=== PATIENT | male | born 1965 | race Caucasian/White ===

== ENCOUNTER 2020-12-29 17:38 | Emergency (ER) | payer SELFPAY ==
[~2020-12-29] VITALS: Ht 170.2 cm; Wt 77.1 kg
[2020-12-29 18:55] VITALS: BP 122/78
[2020-12-29 19:42] LABS: Basophils # (auto) 0.2 10 ^3/uL (0-0.2); Basophils % (auto) 1.5 % (0.0-2.0); Eosinophils # (auto) 0.3 10 ^3/uL (0-0.8); Eosinophils % (auto) 2.3 % (0.0-7.0); Hematocrit 48.2 % (41.0-53.0); Hemoglobin 17.2 g/dL (13.5-17.5); Lymphocytes # (auto) 3.9 10 ^3/uL (0.4-5.4); Lymphocytes % (auto) 30.3 % (10.0-50.0); Mean Corpuscular Hemoglobin 31.5 pg (28.0-32.0); Mean Corpuscular Hgb Conc. 35.7 g/dL (32.0-36.0); Monocytes # (auto) 1.3 10 ^3/uL (0-1.3); Monocytes % (auto) 9.9 % (0.0-12.0); Neutrophils # (auto) 7.2 10 ^3/uL (1.6-8.6); Nucleated Red Blood Cells % 0.2 %; Platelet Count (auto) 324 10^3/uL (140-450); Red Blood Cells 5.47 10^6/uL (4.5-5.90); Red Cell Distribution Width 13.5 % (11.8-14.3); White Blood Cell 12.9 10^3/uL (4.4-10.8)
[2020-12-29] MEDS ORDERED: SODIUM CHLORIDE 0.9% 1,000 ML IV ONE (19:45)
[2020-12-29] MEDS ORDERED: ACETAMINOPHEN 325 MG TAB PO ONE (19:45)
[2020-12-29] MEDS ORDERED: METOCLOPRAMIDE HCL 5MG/ml INJ 2ml VIAL IV ONE (19:45)
[2020-12-29] MEDS ORDERED: KETOROLAC TROMETH 30 MG/ML 1ML VIAL IV ONE (19:45)
[2020-12-29 20:12] LABS: Amphetamine Screen, Urine POSITIVE (NEGATIVE); Barbiturate Scree,Urine NEGATIVE (NEGATIVE); Benzodiazephine Screen, Urine NEGATIVE (NEGATIVE); Cannabinoid Screen, Urine POSITIVE (NEGATIVE); Cocaine Screen, Urine NEGATIVE (NEGATIVE); Opiate Scree,Urine NEGATIVE (NEGATIVE); Phencyclidine Screen, Urine NEGATIVE (NEGATIVE)
[2020-12-29 20:13] LABS: Albumin 3.4 g/dL (3.4-5.0); Anion Gap 8 (5-15); Calcium 8.4 mg/dL (8.5-10.1); Carbon Dioxide 22 mmol/L (21-32); Chloride 106 mmol/L (98-107); Glucose 109 mg/dL (74-106); Potassium 4.2 mmol/L (3.5-5.1); Sodium 136 mmol/L (136-145)
[2020-12-29 20:19] LABS: Alkaline Phosphatase 95 U/L (45-117); Aspartate Aminotransferase 26 U/L (15-37); Bilirubin, Total 0.3 mg/dL (0.2-1.0); GFR African American 96 mL/min; GFR Non-African American 80 mL/min; Total Protein 7.7 g/dL (6.4-8.2)
[2020-12-29 20:25] LABS: Alanine Aminotransferase 30 U/L (16-61)
[2020-12-29 20:33] LABS: BUN/Creatinine Ratio 17.5; Blood Urea Nitrogen 18 mg/dL (7-18)
== END 2020-12-29 20:53 | disposition left against medical advice (07) ==
LOC: ER 17:38
DX: R51.9 Headache, unspecified (principal)
CPT/HCPCS: 36415; 71046; 80053; 80307; 84484; 85025; 93005

== ENCOUNTER 2024-07-08 14:33 | Inpatient (IN) | payer OTHER ==
[~2024-07-08] VITALS: Ht 167.6 cm; Wt 79.7 kg
[~2024-07-08 14:33] MED LIST: ASPI-543 PO; ATOR80TA PO; LISI10TA34 PO; NITR0.4S29 SL
--- NOTE | 2024-07-08 15:24 | ED.PDOC ---
HPI Comments 58 year old male presents to the ED with chief complaint of chest rash/pain. Patient reports that he had been experiencing heat and tightness to the right side of his chest along with associated rash around his areola for the past week. Patient relays that the rash has since resolved, but the right side of his chest feels hot and he has felt more fatigued than usual. Patient states he is currently on Aspirin and notes his chest hurts more when he gets mad or his blood pressure elevates. Patient notes history of NH in September. Patient denies any N/V, SOB, cough, fever, chills, dizziness, or headache. Time Seen by MD: 15:18 Primary Care Provider: UNKNOWN Reviewed Notes: Nurses Notes, Medications, Allergies Allergies: Coded Allergies: Penicillins (Verified Allergy, Unknown, 10/02/23) Home Meds Active Scripts Atorvastatin Calcium (Lipitor) 80 Mg Tab, 1 TAB PO DAILY, #30 TAB 5 Refills Prov:JACINDA YODER MD 10/03/23 Nitroglycerin (NTROSTAT SUBLINGUAL) 0.4 Mg Sl, 0.4 MG SL Q5MINP PRN, #100 TAB 5 Refills Prov:JACINDA YODER MD 10/03/23 Aspirin (Aspir-Low) 81 Mg Tab, 81 MG PO DAILY, #30 TAB 5 Refills Prov:JACINDA YODER MD 10/03/23 Reported Medications Lisinopril (Lisinopril) 10 Mg Tab, 1 TAB PO DAILY 10/02/23 Information Source: Patient Mode of Arrival: Ambulatory Severity: Moderate Timing: Weeks Duration: Since onset Prehospital treatment: None Location: Chest (R) Radiation: No Radiation Quality: Tightness Onset: At Rest Cardiac Risk Factors: Smoker, Hyperlipidemia, HTN PE Risk Factors: None History of: Similar pain in past, NH, Aspirin Associated Signs and Symptoms: Chest Rash Past Medical History PAST MEDICAL HISTORY: High Lipids, HTN, NH Surgical History: Denies all surgeries Family History Family History: Reviewed,noncontributory to illness Social History Smoker: Cigarettes, Less Than 1 Pack/Day Alcohol: Denies ETOH Use Drugs: Denies Drug Use Lives In: Home Constitutional: reports: fatigue; denies: chills, diaphoresis, fever, malaise, sweats, weakness, others EENTM: denies: blurred vision, double vision, ear bleeding, ear discharge, ear drainage, ear pain, ear ringing, eye pain, eye redness, hearing loss, mouth pain, mouth swelling, nasal discharge, nose bleeding, nose congestion, nose pain, photophobia, tearing, throat pain, throat swelling, voice changes, others Respiratory: denies: cough, hemoptysis, orthopnea, SOB at rest, shortness of breath, SOB with excertion, stridor, wheezing, others Cardiovascular: reports: chest pain; denies: dizzy spells, diaphoresis, Dyspnea on exertion, edema, irregular heart beat, left arm pain, lightheadedness, palpitations, PND, syncope, others Gastrointestinal: denies: abdomen distended, abdominal pain, blood streaked bowels, constipated, diarrhea, dysphagia, difficulty swallowing, hematemesis, melena, nausea, poor appetite, poor fluid intake, rectal bleeding, rectal pain, vomiting, others Genitourinary: denies: burning, dysuria, flank pain, frequency, hematuria, incontinence, penile discharge, penile sore, pain, testicle pain, testicle swelling, urgency, others Neurological: denies: dizziness, fainting, headache, left sided numbness, left sided weakness, numbness, paresthesia, pre-existing deficit, right sided numbness, right sided weakness, seizure, speech problems, tingling, tremors, weakness, others Musculoskeletal: denies: back pain, gout, joint pain, joint swelling, muscle pain, muscle stiffness, neck pain, others Integumetry: denies: bruises, change in color, change in hair/nails, dryness, laceration, lesions, lumps, rash, wounds, others Allergic/Immunocompromised: denies: Difficulty Healing, Frequent Infections, Hi ves, Itching, others Hematologic/Lymphatic: denies: anemia, blood clots, easy bleeding, easy bruising, swollen glands, others Endocrine: denies: excessive hunger, excessive sweating, excessive thirst, excessive urination, flushing, intolerance to cold, intolerance to heat, unexplained weight gain, unexplained weight loss, others Psychiatric: denies: anxiety, bipolar disorder, depression, hopeless, panic disorder, schizophrenia, sleepless, suicidal, others All Other Systems: Reviewed and Negative Physical Exam General Appearance: No Apparent Distress, Normal HEENT: Normal ENT Inspection, PERRL/EOMI Neck: Full Range of Motion, Non-Tender, Normal, Normal Inspection Respiratory: Chest Non-Tender, Lungs Clear, No Accessory Muscle Use, No Respiratory Distress, Normal Breath Sounds Cardiovascular: No Edema, No JVD, No Murmur, No Gallop, Normal Peripheral Pulses, Regular Rate/Rhythm Breast Exam: Other (No masses felt to chest, no rashes, no tenderness to palpation. Mild gynecomastia noted to right breast.) Gastrointestinal: No Organomegaly, Non Tender, No Pulsatile Mass, Normal Bowel Sounds, Soft Genitalia: Deferred Pelvic: Deferred Rectal: Deferred Extremities: No calf tenderness, Normal capillary refill, Normal inspection, Normal range of motion, Non-tender, No pedal edema Musculoskeletal : Apperance: Normal Neurologic: Alert, social work therapist II-XII nml as Tested, No Motor Deficits, Normal Affect, Normal Mood, No Sensory Deficits Cerebellar Function: Normal Reflexes: Normal Skin: Dry, Normal Color, Warm Lymphatic: No Adenopathy Was a procedure done? Was a procedure done?: No CP Differential Dx Differential Diagnosis: Angina, Heart Failure, NH, PVC's X-Ray, Labs, Meds, VS Vital Signs Date Time Temp Pulse Resp B/P (MAP) Pulse Ox O2 Delivery O2 Flow Rate FiO2 07/08/24 17:14 109 07/08/24 15:51 97.8 98 18 140/101 (114) 97 Lab Test 07/08/24 16:52 07/08/24 16:08 Range/Units Troponin I High Sensitivity Pending 4 </=54 ng/L White Blood Count 10.9 H 4.4-10.8 10^3/uL Red Blood Count 5.87 4.5-5.90 10^6/uL Hemoglobin 18.3 H 13.5-17.5 g/dL Hematocrit 53.1 H 41.0-53.0 % Mean Corpuscular Volume 90.4 80.0-100.0 fL Mean Corpuscular Hemoglobin 31.2 28.0-32.0 pg Mean Corpuscular Hemoglobin Concent 34.5 32.0-36.0 g/dL Red Cell Distribution Width 13.8 11.8-14.3 % Platelet Count 355 140-450 10^3/uL Mean Platelet Volume 8.2 6.9-10.8 fL Neutrophils (%) (Auto) 51.3 37.0-80.0 % Lymphocytes (%) (Auto) 33.5 10.0-50.0 % Monocytes (%) (Auto) 11.2 0.0-12.0 % Eosinophils (%) (Auto) 2.5 0.0-7.0 % Basophils (%) (Auto) 1.5 0.0-2.0 % Neutrophils # (Auto) 5.6 1.6-8.6 10 ^3/uL Lymphocytes # (Auto) 3.7 0.4-5.4 10 ^3/uL Monocytes # (Auto) 1.2 0-1.3 10 ^3/uL Eosinophils # (Auto) 0.3 0-0.8 10 ^3/uL Basophils # (Auto) 0.2 0-0.2 10 ^3/uL Nucleated Red Blood Cells 0.1 % Sodium Level 138 136-145 mmol/L Potassium Level 4.8 3.5-5.1 mmol/L Chloride Level 103 98-107 mmol/L Carbon Dioxide Level 28 20-31 mmol/L Anion Gap 7 5-15 Blood Urea Nitrogen 12 9-23 mg/dL Creatinine 0.97 0.700-1.30 mg/dL Glomerular Filtration Rate Calc 90 >90 mL/min BUN/Creatinine Ratio 12.4 10.0-20.0 Serum Glucose 97 74-106 mg/dL Calcium Level 10.5 H 8.7-10.4 mg/dL Total Bilirubin 0.3 0.2-1.0 mg/dL Aspartate Amino Transferase (AST) 23 13-40 U/L Alanine Aminotransferase (ALT) 47 H 7-40 U/L Alkaline Phosphatase 102 46-116 U/L Total Protein 7.8 5.7-8.2 g/dL Albumin 4.8 3.2-4.8 g/dL Chest XR: FINDINGS: Lines and tubes: None Cardiomediastinal silhouette: normal Pulmonary vasculature: normal Lung expansion: normal Lung airspace: normal Lung interstitium: normal Pleura: normal Pneumothorax: no Bones: Unremarkable Other: no IMPRESSION: No acute intrathoracic abnormality. Images Reviewed?: Images reviewed and evaluated by me Time of 1ST Reevaluation: 16:18 Reevaluation 1ST: Unchanged Patient Education/Counseling: Diagnosis, Treatment Family Education/Counseling: No Family Present Departure 1 Departure Time of Disposition: 17:32 Impression: Primary Impression: Chest pain Disposition: 09 ADMITTED INPATIENT Admit to: Tele Condition: Serious Critical Care Note Critical Care Time?: No Stability Stability form required: No Heart Score Heart Score: Heart Score Response (Comments) Value History Moderate Suspicious 1 EKG Repolarization Disturb 1 Age 45-64 1 Risk Factors >3 or Hx ASHD 2 Troponin Normal limit 0 Total 5 I personally scribed for TAHIR GEE MD ([email or web address]) on 07/08/24 at 15:24. Electronically submitted by Ciaran Fernandez ([email or web address]). I personally scribed for TAHIR GEE MD ([email or web address]) on 07/08/24 at 16:30. Electronically submitted by Ciaran Fenrandez ([email or web address]). I personally scribed for TAHIR GEE MD ([email or web address]) on 07/08/24 at 17:09. Electronically submitted by Shanda Stearns [email or web address]). TAHIR GEE MD Jul 08, 2024 15:24
[2024-07-08 16:18] LABS: Basophils # (auto) 0.2 10 ^3/uL (0-0.2); Basophils % (auto) 1.5 % (0.0-2.0); Eosinophils # (auto) 0.3 10 ^3/uL (0-0.8); Eosinophils % (auto) 2.5 % (0.0-7.0); Hematocrit 53.1 % (41.0-53.0); Hemoglobin 18.3 g/dL (13.5-17.5); Lymphocytes # (auto) 3.7 10 ^3/uL (0.4-5.4); Lymphocytes % (auto) 33.5 % (10.0-50.0); Mean Corpuscular Hemoglobin 31.2 pg (28.0-32.0); Mean Corpuscular Hgb Conc. 34.5 g/dL (32.0-36.0); Mean Corpuscular Volume 90.4 fL (80.0-100.0); Monocytes # (auto) 1.2 10 ^3/uL (0-1.3); Monocytes % (auto) 11.2 % (0.0-12.0); Neutrophils # (auto) 5.6 10 ^3/uL (1.6-8.6); Neutrophils % (auto) 51.3 % (37.0-80.0); Nucleated Red Blood Cells % 0.1 %; Platelet Count (auto) 355 10^3/uL (140-450); Red Blood Cells 5.87 10^6/uL (4.5-5.90); Red Cell Distribution Width 13.8 % (11.8-14.3); White Blood Cell 10.9 10^3/uL (4.4-10.8)
--- NOTE | 2024-07-08 16:23 | DVH ---
XY CHEST PORTABLE, HISTORY: cp COMPARISON: XY CHEST PORTABLE on DOS: 10/02/23 XY CHEST PORTABLE on DOS: 10/02/23 TECHNICAL DATA: 1 view of the chest was obtained. FINDINGS: Lines and tubes: None Cardiomediastinal silhouette: normal Pulmonary vasculature: normal Lung expansion: normal Lung airspace: normal Lung interstitium: normal Pleura: normal Pneumothorax: no Bones: Unremarkable Other: no IMPRESSION: No acute intrathoracic abnormality.
[2024-07-08 16:36] LABS: Alkaline Phosphatase 102 U/L (46-116); Anion Gap 7 (5-15); Aspartate Aminotransferase 23 U/L (13-40); BUN/Creatinine Ratio 12.4 (10.0-20.0); Bilirubin, Total 0.3 mg/dL (0.2-1.0); Blood Urea Nitrogen 12 mg/dL (9-23); Carbon Dioxide 28 mmol/L (20-31); Chloride 103 mmol/L (98-107); Glucose 97 mg/dL (74-106); Potassium 4.8 mmol/L (3.5-5.1); Sodium 138 mmol/L (136-145); Total Protein 7.8 g/dL (5.7-8.2)
[2024-07-08 16:46] LABS: Alanine Aminotransferase 47 U/L (7-40); Albumin 4.8 g/dL (3.2-4.8); Calcium 10.5 mg/dL (8.7-10.4)
[2024-07-08 17:58] VITALS: RESP 18; RESP 20
[2024-07-08] MEDS: ASPirin 325 MG TAB PO ONE (17:58)
[2024-07-08 19:38] VITALS: BP 125/98; PULSE 90; TEMP 97.9; O2SAT 95
[2024-07-08] MEDS ORDERED: ACETAMINOPHEN 325 MG TAB PO PRN (21:45)
[2024-07-08] MEDS ORDERED: DOCUSATE SOD 100 MG CAP PO PRN (21:45)
[2024-07-08] MEDS ORDERED: ONDANSETRON HCL 4 MG/2 ML VIAL IV PRN (21:45)
[2024-07-08] MEDS ORDERED: NITROGLYCERIN 0.4 MG SL TAB SL PRN (21:45)
[2024-07-08] MEDS ORDERED: MORPHINE SULFATE INJ 2 MG/ml SYRG IV PRN ×2 (21:45)
[2024-07-08] MEDS: SODIUM CHLOR 0.9% PF (SALINE LOCK) 10ML VIAL/SYR IV SCH (22:24)
--- NOTE | 2024-07-08 23:38 | DVHDSRES ---
Discharge Summary Date of Admission Resident Creating Document: TREVOR MARTINS RESIDENT Jul 08, 2024 at 21:35 Date of Discharge: Jul 08, 2024 Admitting Diagnosis chest pain Labs/Diagnostic Data: Laboratory Results Test 07/08/24 16:52 07/08/24 16:08 Troponin I High Sensitivity 4 ng/L (</=54) White Blood Count 10.9 10^3/uL (4.4-10.8) Red Blood Count 5.87 10^6/uL (4.5-5.90) Hemoglobin 18.3 g/dL (13.5-17.5) Hematocrit 53.1 % (41.0-53.0) Mean Corpuscular Volume 90.4 fL (80.0-100.0) Mean Corpuscular Hemoglobin 31.2 pg (28.0-32.0) Mean Corpuscular Hemoglobin Concent 34.5 g/dL (32.0-36.0) Red Cell Distribution Width 13.8 % (11.8-14.3) Platelet Count 355 10^3/uL (140-450) Mean Platelet Volume 8.2 fL (6.9-10.8) Neutrophils (%) (Auto) 51.3 % (37.0-80.0) Lymphocytes (%) (Auto) 33.5 % (10.0-50.0) Monocytes (%) (Auto) 11.2 % (0.0-12.0) Eosinophils (%) (Auto) 2.5 % (0.0-7.0) Basophils (%) (Auto) 1.5 % (0.0-2.0) Neutrophils # (Auto) 5.6 10 ^3/uL (1.6-8.6) Lymphocytes # (Auto) 3.7 10 ^3/uL (0.4-5.4) Monocytes # (Auto) 1.2 10 ^3/uL (0-1.3) Eosinophils # (Auto) 0.3 10 ^3/uL (0-0.8) Basophils # (Auto) 0.2 10 ^3/uL (0-0.2) Nucleated Red Blood Cells 0.1 % Sodium Level 138 mmol/L (136-145) Potassium Level 4.8 mmol/L (3.5-5.1) Chloride Level 103 mmol/L (98-107) Carbon Dioxide Level 28 mmol/L (20-31) Anion Gap 7 (5-15) Blood Urea Nitrogen 12 mg/dL (9-23) Creatinine 0.97 mg/dL (0.700-1.30) Glomerular Filtration Rate Calc 90 mL/min (>90) BUN/Creatinine Ratio 12.4 (10.0-20.0) Serum Glucose 97 mg/dL (74-106) Calcium Level 10.5 mg/dL (8.7-10.4) Total Bilirubin 0.3 mg/dL (0.2-1.0) Aspartate Amino Transferase (AST) 23 U/L (13-40) Alanine Aminotransferase (ALT) 47 U/L (7-40) Alkaline Phosphatase 102 U/L (46-116) Total Protein 7.8 g/dL (5.7-8.2) Albumin 4.8 g/dL (3.2-4.8) Other Laboratory Tests 07/08/24 16:08 Brief Hx & Hospital Course: Patient is 58 years old male with past medical history of hypertension, hyperlipidemia, [place], smoker came with a complaint of chest tightness on right side along with some feeling heat. Patient reported that he had rash on the right side of the chest before which resolved but the chest feels hot and he feels fatigued which is unusual. Initial lab workup revealed leukocytosis with WBC 10.9, calcium 10.5, elevated ALT 47, negative for troponin I, sodium/potassium, serum creatinine within normal limit. Following admission order patient could not be seen as patient eloped. Condition at Discharge: Undetermined Final Diagnosis/Problems List chest pain ACS under evaluation Hypertension Hyperlipidemia History of SC Leukocytosis Smoker Discharge Disposition: Eloped Discharge Statement: "Patient was advised to return to the ER or call 911 if any headaches, dizziness, shortness of breath, chest pain, abdominal pain, bleeding, fevers, or worsening of medical condition. Patient was counseled about treatment plan, medications, possible side effects, patientverbalized understanding. All questions were answered to the best of my ability. This discharge took greater then 30 minutes in planning, reviewing documentation, counseling the patient, and discussing with other team members." ASSESSMENT ASSESSMENT Assessment Date of Service: Jul 08, 2024 Billing Provider: TIFFANIE ESQUIVEL MD Common Visit Codes: NOT BILLABLE TREVOR MARTINS RESIDENT Jul 08, 2024 23:38 TIFFANIE ESQUIVEL MD Jul 10, 2024 14:57
--- NOTE | 2024-07-08 23:38 | DVHHPRES ---
History of Present Illness Resident Creating Document: TREVOR MARTINS RESIDENT History of Present Illness Patient is 58 years old male with past medical history of hypertension, hyperlipidemia, [place], smoker came with a complaint of chest tightness on right side along with some feeling heat. Patient reported that he had rash on the right side of the chest before which resolved but the chest feels hot and he feels fatigued which is unusual. Initial lab workup revealed leukocytosis with WBC 10.9, calcium 10.5, elevated ALT 47, negative for troponin I, sodium/potassium, serum creatinine within normal limit. Following admission order patient could not be seen as patient eloped. Past Medical History Hypertension, bgs hyperlipidemia, ex-smoker Past Surgical History None as per medical record Past Social History Patient denied drinking alcohol or drug abuse, smoker Review of Systems Review of Systems Review of other system could not be done as patient eloped Allergies: Coded Allergies: Penicillins (Verified Allergy, Unknown, 10/02/23) Exam Vital Signs Vital Signs Date Time Temp Pulse Resp B/P (MAP) Pulse Ox O2 Delivery O2 Flow Rate FiO2 07/08/24 19:38 97.9 90 125/98 (107) 95 97.9 07/08/24 17:58 20 Room Air* 0 21 Exam Physical examination could not be done as patient eloped Labs/Xrays Labs Test 07/08/24 16:52 07/08/24 16:08 Range/Units Troponin I High Sensitivity 4 </=54 ng/L White Blood Count 10.9 H 4.4-10.8 10^3/uL Red Blood Count 5.87 4.5-5.90 10^6/uL Hemoglobin 18.3 H 13.5-17.5 g/dL Hematocrit 53.1 H 41.0-53.0 % Mean Corpuscular Volume 90.4 80.0-100.0 fL Mean Corpuscular Hemoglobin 31.2 28.0-32.0 pg Mean Corpuscular Hemoglobin Concent 34.5 32.0-36.0 g/dL Red Cell Distribution Width 13.8 11.8-14.3 % Platelet Count 355 140-450 10^3/uL Mean Platelet Volume 8.2 6.9-10.8 fL Neutrophils (%) (Auto) 51.3 37.0-80.0 % Lymphocytes (%) (Auto) 33.5 10.0-50.0 % Monocytes (%) (Auto) 11.2 0.0-12.0 % Eosinophils (%) (Auto) 2.5 0.0-7.0 % Basophils (%) (Auto) 1.5 0.0-2.0 % Neutrophils # (Auto) 5.6 1.6-8.6 10 ^3/uL Lymphocytes # (Auto) 3.7 0.4-5.4 10 ^3/uL Monocytes # (Auto) 1.2 0-1.3 10 ^3/uL Eosinophils # (Auto) 0.3 0-0.8 10 ^3/uL Basophils # (Auto) 0.2 0-0.2 10 ^3/uL Nucleated Red Blood Cells 0.1 % Sodium Level 138 136-145 mmol/L Potassium Level 4.8 3.5-5.1 mmol/L Chloride Level 103 98-107 mmol/L Carbon Dioxide Level 28 20-31 mmol/L Anion Gap 7 5-15 Blood Urea Nitrogen 12 9-23 mg/dL Creatinine 0.97 0.700-1.30 mg/dL Glomerular Filtration Rate Calc 90 >90 mL/min BUN/Creatinine Ratio 12.4 10.0-20.0 Serum Glucose 97 74-106 mg/dL Calcium Level 10.5 H 8.7-10.4 mg/dL Total Bilirubin 0.3 0.2-1.0 mg/dL Aspartate Amino Transferase (AST) 23 13-40 U/L Alanine Aminotransferase (ALT) 47 H 7-40 U/L Alkaline Phosphatase 102 46-116 U/L Total Protein 7.8 5.7-8.2 g/dL Albumin 4.8 3.2-4.8 g/dL Assessment/Plan Assessment/Plan Right-sided chest pain, cause undetermined ACS for evaluation Hypertension Hyperlipidemia History of coronary artery disease Smoker DETAILS OF THE TREATMENT PLAN COULD NOT BE MAKE PATIENT ELOPED Goals of care/advance care planning; FULL CODE; PUD prophylaxis: DVT prophylaxis: Plan discussed with Dr. Esquivel, nursing staff, Plan discussed with: Other (RN) My Orders Orders - TREVOR MARTINS RESIDENT Procedure Category Date Status Time Admit ADMIT 07/08/24 Transmitted 21:35 Echo 2d Mode Cardiac US 07/08/24 Logged DOP 21:35 Oxygen By Nasal RT 12/3/24 Transmitted Cannula 21:35 Thyroid Stimulating LAB 07/08/24 In Process Hormone 22:04 Magnesium LAB 07/08/24 In Process 22:04 Date of Service: Jul 08, 2024 Billing Provider: TIFFANIE ESQUIVEL MD Common Visit Codes: 73680-EPBALLX INP/OBS CARE (HIGH) Secondary Visit Codes: 44177-[id number] CARE PLAN 30 MINUTES TREVOR MARTINS RESIDENT Jul 08, 2024 23:38 TIFFANIE ESQUIVEL MD Jul 10, 2024 14:56
--- NOTE | 2024-07-09 10:32 | ECG ---
[facility] Test Date: 2024-07-08 Test Time: 17:14:50 Pat Name: JOCELYNE WEI Department: ER Room: [address] [place] [address] A Gender: M Slabber Light: AZIZA : 1965 Requested By: TAHIR GEE Order Number: [id number] Reading MD: Pavan Wilson Measurements Intervals [place] Rate: 109 P: 43 [place]: 140 QRS: -17 QRSD: 93 T: 140 QT: 290 QTc: 391 Interpretive Statements Sinus tachycardia Abnormal R-wave progression, early transition LVH with secondary repolarization abnormality Inferior infarct, old Electronically Signed On 07-09-2024 16:25:07 PST by Pavan Wilson Please click the below link to view image of tracing.
--- NOTE | 2024-07-11 12:45 | ECG ---
[facility] Test Date: 2024-07-08 Test Time: 19:28:39 Pat Name: JOCELYNE WEI Department: ER Room: [address] [place] [address] Gender: M Plant Mechanic: SHADI : 1965 Requested By: TAHIR GEE Order Number: [id number] Reading MD: Pavan Wilson Measurements Intervals [place] Rate: 87 P: 59 ND: 140 QRS: -26 QRSD: 110 T: 5 QT: 347 QTc: 418 Interpretive Statements Sinus rhythm Abnormal R-wave progression, early transition Left ventricular hypertrophy Electronically Signed On 07-17-2024 11:08:27 PST by Pavan Wilson Please click the below link to view image of tracing.
== END 2024-07-08 22:46 | disposition left against medical advice (07) | DRG 203 ==
LOC: ER 14:33 → TELE 21:35
PROVIDERS: ADMIT Internal Medicine; ATTEND Emergency Medicine
DX: M94.0 Chondrocostal junction syndrome [Tietze] (principal); D72.829 Elevated white blood cell count, unspecified; I25.2 Old myocardial infarction; Z53.29 Procedure and treatment not carried out because of patient's decision for other reasons; E78.5 Hyperlipidemia, unspecified; F17.210 Nicotine dependence, cigarettes, uncomplicated; I10 Essential (primary) hypertension; Z79.899 Other long term (current) drug therapy
CPT/HCPCS: 36415; 71045; 80053; 83735; 84443; 84484; 85025; 93005; G0378

== ENCOUNTER 2024-11-02 14:00 | Emergency (ER) | payer OTHER ==
[~2024-11-02] VITALS: Ht 170.2 cm; Wt 77.0 kg
--- NOTE | 2024-11-02 14:11 | ECG ---
[facility] Test Date: 2024-11-02 Test Time: 14:09:09 Pat Name: JOCELYNE WEI Department: ED Room: Gender: Radio Maintainer: PARVIN : 1965 Requested By: MED PISANO Order Number: [id number] Reading MD: Pavan Wilson Measurements Intervals [place] Rate: 98 P: 47 W[place]: 138 QRS: -16 QRSD: 105 T: 131 QT: 342 QTc: 437 Interpretive Statements Sinus rhythm Abnormal R-wave progression, early transition LVH with secondary repolarization abnormality Inferior infarct, old Electronically Signed On 11-05-2024 22:02:43 PDT by Pavan Wilson Please click the below link to view image of tracing.
--- NOTE | 2024-11-02 14:26 | ED.PDOC ---
HPI Comments 58 year old male JEREMI presents to the ED with chief complaint of chest pain/SOB. Patient reports that he has been experiencing left sided chest pressure that radiates to his left arm along with associated SOB for the past 2 days. Patient relays that he took one dose of NTG at home with some relief in chest pain noted. EMS states that they provided the patient 0.4mg of NTG and 324 of ASA on route with some relief noted. Patient notes he has history of a previous IN and currently smokes. Patient denies any numbness, weakness, dizziness, headache, or blurred vision. Chief Complaint: Chest Pain Time Seen by MD: 14:20 Primary Care Provider: UNKNOWN Reviewed Notes: Nurses Notes, Hospice Nurse Notes, Medications, Allergies Allergies: Coded Allergies: Penicillins (Verified Allergy, Unknown, 10/02/23) Home Meds Active Scripts Atorvastatin Calcium (Lipitor) 80 Mg Tab, 1 TAB PO DAILY, #30 TAB 5 Refills Prov:JACINDA YODER MD 10/03/23 Nitroglycerin (NTROSTAT SUBLINGUAL) 0.4 Mg Sl, 0.4 MG SL Q5MINP PRN, #100 TAB 5 Refills Prov:JACINDA YODER MD 10/03/23 Aspirin (Aspir-Low) 81 Mg Tab, 81 MG PO DAILY, #30 TAB 5 Refills Prov:JACINDA YODER MD 10/03/23 Reported Medications Lisinopril (Lisinopril) 10 Mg Tab, 1 TAB PO DAILY 10/02/23 Information Source: Patient, Emergency Med Personnel Mode of Arrival: EMS Severity: Moderate Timing: Days Duration: Since onset Prehospital treatment: ASA, NTG Location: Chest (L) Radiation: Arm (L) Quality: Pressure Onset: At Rest Cardiac Risk Factors: Smoker, Hyperlipidemia, HTN PE Risk Factors: None History of: Similar pain in past, IN Associated Signs and Symptoms: SOB Past Medical History PAST MEDICAL HISTORY: High Lipids, HTN, IN Surgical History (Other): Perforated bowel surgery, left ankle surgery, angiogram Family History Family History: Reviewed,noncontributory to illness Social History Smoker: Cigarettes, Less Than 1 Pack/Day Alcohol: Denies ETOH Use Drugs: Denies Drug Use Lives In: Home Constitutional: denies: chills, diaphoresis, fatigue, fever, malaise, sweats, weakness, others EENTM: denies: blurred vision, double vision, ear bleeding, ear discharge, ear drainage, ear pain, ear ringing, eye pain, eye redness, hearing loss, mouth pain, mouth swelling, nasal discharge, nose bleeding, nose congestion, nose pain, photophobia, tearing, throat pain, throat swelling, voice changes, others Respiratory: reports: shortness of breath; denies: cough, hemoptysis, orthopnea, SOB at rest, SOB with excertion, stridor, wheezing, others Cardiovascular: reports: chest pain; denies: dizzy spells, diaphoresis, Dyspnea on exertion, edema, irregular heart beat, left arm pain, lightheadedness, palpitations, PND, syncope, others Gastrointestinal: denies: abdomen distended, abdominal pain, blood streaked bowels, constipated, diarrhea, dysphagia, difficulty swallowing, hematemesis, melena, nausea, poor appetite, poor fluid intake, rectal bleeding, rectal pain, vomiting, others Genitourinary: denies: burning, dysuria, flank pain, frequency, hematuria, incontinence, penile discharge, penile sore, pain, testicle pain, testicle swelling, urgency, others Neurological: denies: dizziness, fainting, headache, left sided numbness, left sided weakness, numbness, paresthesia, pre-existing deficit, right sided numbness, right sided weakness, seizure, speech problems, tingling, tremors, weakness, others Musculoskeletal: denies: back pain, gout, joint pain, joint swelling, muscle pain, muscle stiffness, neck pain, others Integumetry: denies: bruises, change in color, change in hair/nails, dryness, laceration, lesions, lumps, rash, wounds, others Allergic/Immunocompromised: denies: Difficulty Healing, Frequent Infections, Hives, Itching, others Hematologic/Lymphatic: denies: anemia, blood clots, easy bleeding, easy bruising, swollen glands, others Endocrine: denies: excessive hunger, excessive sweating, excessive thirst, excessive urination, flushing, intolerance to cold, intolerance to heat, unexplained weight gain, unexplained weight loss, others Psychiatric: denies: anxiety, bipolar disorder, depression, hopeless, panic disorder, schizophrenia, sleepless, suicidal, others All Other Systems: Reviewed and Negative Physical Exam General Appearance: Moderate Distress, Normal HEENT: Normal ENT Inspection, PERRL/EOMI Neck: Full Range of Motion, Non-Tender, Normal, Normal Inspection Respiratory: Chest Non-Tender, Lungs Clear, No Accessory Muscle Use, No Respiratory Distress, Normal Breath Sounds Cardiovascular: No Edema, No JVD, No Murmur, No Gallop, Normal Peripheral Pulses, Regular Rate/Rhythm Breast Exam: Deferred Gastrointestinal: No Organomegaly, Non Tender, No Pulsatile Mass, Normal Bowel Sounds, Soft Genitalia: Deferred Pelvic: Deferred Rectal: Deferred Extremities: No calf tenderness, Normal capillary refill, Normal inspection, Normal range of motion, Non-tender, No pedal edema Musculoskeletal : Apperance: Normal Neurologic: Alert, learning center instructor II-XII nml as Tested, No Motor Deficits, Normal Affect, Normal Mood, No Sensory Deficits Cerebellar Function: NOT DONE Reflexes: NOT DONE Skin: Dry, Normal Color, Warm Peripheral Pulses: 3+ Radial (R), 3+ Radial (L) Lymphatic: No Adenopathy Was a procedure done? Was a procedure done?: No CP Differential Dx Differential Diagnosis: A-fib, A-Flutter, Angina, Anxiety / Panic Attack, Atrial Dysrhythmia, Electrolyte Disorder X-Ray, Labs, Meds, VS Vital Signs Date Time Temp Pulse Resp B/P (MAP) Pulse Ox O2 Delivery O2 Flow Rate FiO2 11/02/24 16:11 70 15 130/94 11/02/24 15:04 84 11/02/24 14:51 Room Air* 0 21 11/02/24 14:39 97.9 78 17 119/70 (86) 99 97.9 11/02/24 14:09 98 11/02/24 14:05 97.6 107 16 120/72 (88) 96 97.6 Lab Test 11/02/24 15:18 11/02/24 14:27 Range/Units Troponin I High Sensitivity 6 5 </=54 ng/L White Blood Count 11.9 H 4.4-10.8 10^3/uL Red Blood Count 5.74 4.5-5.90 10^6/uL Hemoglobin 17.7 H 13.5-17.5 g/dL Hematocrit 51.6 41.0-53.0 % Mean Corpuscular Volume 89.9 80.0-100.0 fL Mean Corpuscular Hemoglobin 30.9 28.0-32.0 pg Mean Corpuscular Hemoglobin Concent 34.3 32.0-36.0 g/dL Red Cell Distribution Width 13.7 11.8-14.3 % Platelet Count 345 140-450 10^3/uL Mean Platelet Volume 8.3 6.9-10.8 fL Neutrophils (%) (Auto) 54.5 37.0-80.0 % Lymphocytes (%) (Auto) 31.6 10.0-50.0 % Monocytes (%) (Auto) 10.2 0.0-12.0 % Eosinophils (%) (Auto) 2.6 0.0-7.0 % Basophils (%) (Auto) 1.1 0.0-2.0 % Neutrophils # (Auto) 6.5 1.6-8.6 10 ^3/uL Lymphocytes # (Auto) 3.8 0.4-5.4 10 ^3/uL Monocytes # (Auto) 1.2 0-1.3 10 ^3/uL Eosinophils # (Auto) 0.3 0-0.8 10 ^3/uL Basophils # (Auto) 0.1 0-0.2 10 ^3/uL Nucleated Red Blood Cells 0.1 % Prothrombin Time Pending Prothrombin Time INR Pending Activated Partial Thromboplast Time Pending Sodium Level 137 136-145 mmol/L Potassium Level 4.1 3.5-5.1 mmol/L Chloride Level 104 98-107 mmol/L Carbon Dioxide Level 23 20-31 mmol/L Anion Gap 10 5-15 Blood Urea Nitrogen 17 9-23 mg/dL Creatinine 1.01 0.700-1.30 mg/dL Glomerular Filtration Rate Calc 86 >90 mL/min BUN/Creatinine Ratio 16.8 10.0-20.0 Serum Glucose 119 H 74-106 mg/dL Calcium Level 10.3 8.7-10.4 mg/dL Magnesium Level 2.0 1.6-2.6 mg/dL Total Bilirubin 0.3 0.2-1.0 mg/dL Aspartate Amino Transferase (AST) 24 13-40 U/L Alanine Aminotransferase (ALT) 45 H 7-40 U/L Alkaline Phosphatase 102 46-116 U/L B-Type Natriuretic Peptide 14.42 0-100 pg/mL Total Protein 7.4 5.7-8.2 g/dL Albumin 4.6 3.2-4.8 g/dL Current Medications Medications (Trade) Dose Ordered Sig/Tracey Route Start Time Stop Time Status Last Admin Morphine Sulfate 2 mg ONCE ONCE IV 11/02/24 16:15 11/02/24 16:16 11/02/24 16:11 Ondansetron HCl (Zofran) 4 mg ONCE ONCE IV 11/02/24 16:15 11/02/24 16:16 11/02/24 16:11 Chest XR: Findings/Impression: Frontal chest radiograph demonstrates no acute osseous or superficial soft tissue abnormalities. The trachea is midline. The cardiac silhouette and mediastinum are within normal limits. No pneumothorax, pleural effusions, or consolidations. Patient alert. Came in for chest pain. Chest x-ray reviewed does not show any acute process. Vitals stable. History of coronary artery disease. Has risk factors for coronary artery disease. EKG reviewed does not show any acute changes. Cardiac marker within normal limits. WBC slightly elevated. Hemoglobin slightly elevated. Was given nitro in the field. Was given morphine. Was given Zofran. Reviewed his previous visit. Explained to the patient. Continue cardiac monitoring. Time of 1ST Reevaluation: 15:20 Reevaluation 1ST: Unchanged Patient Education/Counseling: Diagnosis, Treatment Family Education/Counseling: No Family Present Additional Information Previous visit documents reviewed: 07/08/24 for chest pain The following tests were ordered, and results were reviewed by me: Chest XR, Trop, CBC, CMP, Mag, PTPTT, EKG Additional Information was gathered from interviewing the following independent historians: EMS I reviewed and agreed with the following test results read by other providers: Chest XR I discussed treatment and results with medical personnel and: Patient Comprehensive systems review obtained and negative except for what is stated in the HPI. Departure 1 Departure Time of Disposition: 16:14 Impression: Primary Impression: Chest pain of unknown etiology Disposition: 09 ADMITTED INPATIENT Admit to: Med Surg Condition: Guarded Critical Care Note Critical Care Time?: Yes (45 min-critical care time only) Critical care comment: Chest pain continue to monitor Stability Stability form required: No Heart Score Heart Score: Heart Score Response (Comments) Value History Highly Suspicious 2 EKG Repolarization Disturb 1 Age 45-64 1 Risk Factors >3 or Hx ASHD 2 Troponin Normal limit 0 Total 6 I personally scribed for MED PISANO MD ([email or web address]) on 11/02/24 at 14:26. Electronically submitted by Ciaran Fernandez ([email or web address]). I personally scribed for MED PISANO MD ([email or web address]) on 11/02/24 at 15:55. Electronically submitted by Ciaran Fernandez ([email or web address]). MED PISANO MD Nov 02, 2024 14:26
[2024-11-02 15:00] LABS: Basophils # (auto) 0.1 10 ^3/uL (0-0.2); Basophils % (auto) 1.1 % (0.0-2.0); Eosinophils # (auto) 0.3 10 ^3/uL (0-0.8); Eosinophils % (auto) 2.6 % (0.0-7.0); Hematocrit 51.6 % (41.0-53.0); Hemoglobin 17.7 g/dL (13.5-17.5); Lymphocytes # (auto) 3.8 10 ^3/uL (0.4-5.4); Lymphocytes % (auto) 31.6 % (10.0-50.0); Mean Corpuscular Hemoglobin 30.9 pg (28.0-32.0); Mean Corpuscular Hgb Conc. 34.3 g/dL (32.0-36.0); Mean Corpuscular Volume 89.9 fL (80.0-100.0); Monocytes # (auto) 1.2 10 ^3/uL (0-1.3); Monocytes % (auto) 10.2 % (0.0-12.0); Neutrophils # (auto) 6.5 10 ^3/uL (1.6-8.6); Neutrophils % (auto) 54.5 % (37.0-80.0); Nucleated Red Blood Cells % 0.1 %; Platelet Count (auto) 345 10^3/uL (140-450); Red Blood Cells 5.74 10^6/uL (4.5-5.90); Red Cell Distribution Width 13.7 % (11.8-14.3); White Blood Cell 11.9 10^3/uL (4.4-10.8)
[2024-11-02 15:10] LABS: Albumin 4.6 g/dL (3.2-4.8); Alkaline Phosphatase 102 U/L (46-116); Anion Gap 10 (5-15); Aspartate Aminotransferase 24 U/L (13-40); BUN/Creatinine Ratio 16.8 (10.0-20.0); Bilirubin, Total 0.3 mg/dL (0.2-1.0); Blood Urea Nitrogen 17 mg/dL (9-23); Calcium 10.3 mg/dL (8.7-10.4); Carbon Dioxide 23 mmol/L (20-31); Chloride 104 mmol/L (98-107); Potassium 4.1 mmol/L (3.5-5.1); Sodium 137 mmol/L (136-145); Total Protein 7.4 g/dL (5.7-8.2)
[2024-11-02 15:11] LABS: Alanine Aminotransferase 45 U/L (7-40); Glucose 119 mg/dL (74-106)
--- NOTE | 2024-11-02 15:39 | DVH ---
EXAM: XY CHEST PORTABLE TECHNIQUE: Single frontal chest radiograph CLINICAL HISTORY: CP COMPARISON: XY CHEST PORTABLE on DOS: 07/08/24, XY CHEST PORTABLE on DOS: 10/02/23 Findings/Impression: Frontal chest radiograph demonstrates no acute osseous or superficial soft tissue abnormalities. The trachea is midline. The cardiac silhouette and mediastinum are within normal limits. No pneumothorax, pleural effusions, or consolidations.
[2024-11-02] MEDS: MORPHINE SULFATE INJ 2 MG/ml SYRG IV ONE (16:11)
[2024-11-02] MEDS: ONDANSETRON HCL 4 MG/2 ML VIAL IV ONE (16:11)
[2024-11-02 18:01] LABS: INR 0.98 (0.9-1.15); Partial Thromboplastin Time 28.5 SEC (24.5-34.5); Prothrombin Time 10.4 sec (9.3-11.8)
[2024-11-02 19:25] VITALS: BP 155/101; PULSE 73; RESP 14; TEMP 97.7; O2SAT 94
--- NOTE | 2024-11-03 10:43 | ECG ---
[facility] Test Date: 2024-11-02 Test Time: 15:04:14 Pat Name: JOCELYNE WEI Department: ED Room: Gender: M Cmo & President: BAHMAN : 1965 Requested By: MED PISANO Order Number: [id number] Reading MD: Pavan Wilson Measurements Intervals Holcomb Rate: 84 P: 35 TN: 144 QRS: -20 QRSD: 106 T: 63 QT: 390 QTc: 462 Interpretive Statements Sinus rhythm Borderline left axis deviation Posterior infarct, old Electronically Signed On 11-05-2024 22:03:03 PDT by Pavan Wilson Please click the below link to view image of tracing.
== END 2024-11-02 19:40 | disposition left against medical advice (07) ==
LOC: ER 14:00 → EDBD 14:00 → ER 19:40
DX: R07.89 Other chest pain (principal); F17.210 Nicotine dependence, cigarettes, uncomplicated; E78.5 Hyperlipidemia, unspecified; I10 Essential (primary) hypertension; I25.2 Old myocardial infarction; R06.02 Shortness of breath; Z79.899 Other long term (current) drug therapy; Z98.890 Other specified postprocedural states; Z88.0 Allergy status to penicillin; Z79.82 Long term (current) use of aspirin
CPT/HCPCS: 36415; 71045; 80053; 83735; 83880; 84484; 85025; 85610; 85730; 93005; 96374; 96375; 99285; J2270; J2405